=== PATIENT | male | born 1950 | race Caucasian/White ===

== ENCOUNTER 2019-02-06 10:42 | Inpatient (IN) | payer MEDICARE, OTHER ==
--- NOTE | 2019-02-06 10:59 | ED Physician Chart ---
ED Chief Complaint/HPI - Patient Information Date Seen:: 02/06/19 Time Seen:: 10:40 Chief Complaint:: Agitation History of Present Illness:: onset x 3 days of agitation and aggressive behavior; no report of trauma, H/As, SIs, neck pain, C/P, cough, Abd. Pain, A/N/V/D/C, fever, chills, or urinary s/s Historian:: Patient, EMS Review:: Nurse's Note Reviewed, Old Chart Reviewed, EMS run form Reviewed ED Review of Systems - Review of Systems General/Constitutional: No fever, No chills, No weight loss, No weakness, No diaphoresis, No edema, No loss of appetite Skin: No skin lesions, No rash, No bruising Head: No headache, No light-headedness Eyes: No loss of vision, No pain, No diplopia ENT: No earache, No nasal drainage, No sore throat, No tinnitus Neck: No neck pain, No swelling, No thyromegaly, No stiffness, No mass noted Cardio Vascular: No chest pain, No palpitations, No PND, No orthopnea, No edema Pulmonary: No SOB, No cough, No sputum, No wheezing GI: No nausea, No vomiting, No diarrhea, No pain, No melena, No hematochezia, No constipation, No hematemesis G/U: No dysuria, No frequency, No hematuria, No nacturia Musculoskeletal: No bone or joint pain, No back pain, No muscle pain Endocrine: No polyuria, No polydipsia Psychiatric: Prior psych history, Depression, Anxiety, No suicidal ideation, No homicidal ideation, No auditory hallucination, No visual hallucination Hematopoietic: No bruising, No lymphadenopathy Allergic/Immuno: No urticaria, No angioedema Neurological: No syncope, No focal symptoms, No weakness, No paresthesia, No headache, No seizure, No dizziness, Confusion, No vertigo ED Past Medical History - Past Medical History Obtainable: Yes Past Medical History: HTN, Dementia Family History: HTN Social History: Non Smoker, No Alcohol, No Drug Use, Single, Care Facility Surgical History: None Psychiatricy History: Depression, Bipolar, Dementia Medication: Reviewed Family Medical History - Family Member Father History Unknown: Yes ED Physical Exam - Physical Examination General/Constitutional: Awake, Well-developed, well-nourished, Alert, No distress, GCS 15, Non-toxic appearing, Ambulatory Head: Atraumatic Eyes: Lids, conjuctiva normal, PERRL, EOMI Skin: Nl inspection, No rash, No skin lesions, No ecchymosis, Well hydrated, No lymphadenopathy ENMT: External ears, nose nl, TM canals nl, Nasal exam nl, Lips, teeth, gums nl , Oropharynx nl, Tonsils nl Neck: Nontender, Full ROM w/o pain, No JVD, No nuchal rigidity, No bruit, No mass, No stridor Respiratory: Nl effort/Exclusion, Clear to Auscultation, No Wheeze/Rhonchi/Rales Cardio Vascular: No murmur, gallop, rubs, NL S1 S2, Carotid/Femoral/Distal pulses equal bilaterally Other Cardio Vascular comments:: Irregular Irregular Rhythm GI: No tenderness/rebounding/guarding, No organomegaly, No hernia, Normal BS's, Nondistended, No mass/bruits, No McBurney tenderness : No CVA tenderness Extremities: No tenderness or effusion, Full ROM, normal strength in all extremities, No edema, Normal digits & nails Neuro/Psych: Alert/oriented, DTR's symmetric, Normal sensory exam, Normal motor strength, Judgement/insight normal, Mood normal, Normal gait, No focal deficits Other Neuro/Psych comments:: + Psychomotor Agitation; no SIs; Mood/Affect: Labile Misc: Normal back, No paraspinal tenderness ED Labs/Radiology/EKG Results - Lab Results Comments:: Reviewed - EKG Interpretations EKG Time:: 11:01 Rate & Rhythm: 88; Atrial Fibrillation Comments:: non-specific st-t changes ED Septic Shock - . Is Septic Shock (SBP<90, OR Lactate>4 mmol\L) present?: No ED Reassessment (Disposition) - Reassessment Reassessment Condition:: Improved - Diagnosis Diagnosis:: Agitation; Medical Clearance; Dementia; Bipolar Disorder - Aftercare/Follow up Instructions Aftercare/Follow-Up Instructions:: Counseled pt regarding lab results/diagnosis & need follow up, Counseled pt & family regarding lab results/diagnosis & need follow up - Patient Disposition Discharge/Transfer:: Acute Care w/in this hosp Admitted to:: [facility] Condition at Disposition:: Stable, Improved
[2019-02-06 11:17] LABS: % BASOPHILS 1.4 % (0.0-2.0); % LYMPHOCYTES 14.6 % (20.0-50.0); % MONOCYTES 6.2 % (2.0-10.0); % NEUTROPHILS 76.8 % (40.0-80.0); BASOPHILE ABSOLUTE 0.1 Th/cumm (0-0.2); EOSINOPHILE ABSOLUTE 0.1 Th/cmm (0.1-0.4); HEMATOCRIT 43.7 % (41.0-60); HEMOGLOBIN 15.5 gm/dL (12-16); LYMPHOCYTE ABSOLUTE 1.2 Th/cmm (1.5-3.0); MEAN CELL VOLUME 92.1 fl (80-99); MEAN CORPUSCULAR HEMOGLOBIN 32.6 pg (27.0-31.0); MEAN CORPUSCULAR HGB CONC 35.4 pg (28.0-36.0); MONOCYTE ABSOLUTE 0.5 Th/cmm (0.3-1.0); NEUTROPHILE ABSOLUTE 6.6 Th/cmm (1.8-8.0); PLATELET COUNT 217 Th/cmm (150-400); RED BLOOD COUNT 4.75 Mil/cmm (3.80-5.80); RED CELL DISTRIBUTION WIDTH 13.9 % (11.5-20.0); WHITE BLOOD COUNT 8.5 Th/cmm (4.8-10.8)
[2019-02-06 11:31] LABS: ACETAMINOPHEN < 10.0 ug/mL (10.0-30.0); ALB/GLOB RATIO 1.5 (1.0-1.8); ALBUMIN 4.1 gm/dL (4.2-5.5); ALKALINE PHOSPHATASE 100 U/L (34-104); ANION GAP 11.6 (7.0-16.0); BILIRUBIN,TOTAL 0.6 mg/dL (0.3-1.0); BUN - UREA NITROGEN 20 mg/dL (7-25); CALCIUM SERUM 9.3 mg/dL (8.6-10.3); CHLORIDE 103 mEq/L (98-107); CHOLESTEROL 137 mg/dL (<200); GFR AFRICAN-AMERICAN > 60.0 ml/min (>90); GFR NON AFRICAN-AMERICAN > 60.0 ml/min; GLUCOSE 108 mg/dL (70-105); HDL -HIGH DENSITY LIPOPROTEIN 50 mg/dL (23-92); POTASSIUM SERUM 3.6 mEq/L (3.5-5.1); SGOT 16 U/L (13-39); SGPT/ALT 24 U/L (7-52); SODIUM SERUM 136 mEq/L (136-145); TOTAL PROTEIN,SERUM 6.9 gm/dL (6.0-8.3); TRIGLYCERIDES 111 mg/dL (<150)
[2019-02-06 11:39] LABS: URINE SOURCE CLEAN C
[2019-02-06 11:46] LABS: URINE BILIRUBIN NEGATIVE (NEGATIVE); URINE BLOOD NEGATIVE (NEGATIVE); URINE GLUCOSE (UA) NEGATIVE (NEGATIVE); URINE KETONE NEGATIVE (NEGATIVE); URINE LEUKOCYTE ESTERASE NEGATIVE (NEGATIVE); URINE MICROSCOPIC INDICATED? YES; URINE NITRATE NEGATIVE (NEGATIVE); URINE PH 5.5 (4.6 - 8.0); URINE PROTEIN TRACE mg/dL (NEGATIVE)
[2019-02-06 11:52] LABS: AMPHETAMINE URINE NEGATIVE (NEGATIVE); BARBITURATES URINE NEGATIVE (NEGATIVE); BENZODIAZEPINES QUAL URINE NEGATIVE (NEGATIVE); CANNABINOID THC NEGATIVE (NEGATIVE); COCAINE METABOLITE QUAL URINE NEGATIVE (NEGATIVE); METHADONE URINE NEGATIVE (NEGATIVE); METHAMPHETAMINES QUAL URINE NEGATIVE (NEGATIVE); OPIATES (MORPHINE) QUAL. URINE NEGATIVE (NEGATIVE); PHENCYCLIDINE (PCP) URINE NEGATIVE (NEGATIVE); TRICYCLICS (TCA) QUAL. URINE NEGATIVE (NEGATIVE)
[2019-02-06 11:55] LABS: URINE CLARITY CLEAR (CLEAR); URINE COLOR YELLOW; URINE EPITHELIAL CELLS NONE SEEN /lpf (FEW); URINE RBC 0-2 /hpf (0-5); URINE WBC 0-2 /hpf (0-5)
[2019-02-06 11:56] LABS: URINE BACTERIA FEW /hpf (NONE SEEN)
--- NOTE | 2019-02-06 12:50 | Psychiatric Evaluation ---
DATE OF SERVICE: 02/06/2019 IDENTIFYING INFORMATION: The patient is a 68-year-old male just here for admission. The patient was sent from [facility] [place] because of agitation. The patient was a poor historian. He was unable to tell me his age, he believes he was 63, on reality is 68. Unable to tell me the date, where he is. He believes he is here to have a checkup. The patient reports that he can tell me how he sleep and eat. He denies prior psychiatric treatment. He denies any previous suicide attempt; however, he is a poor historian. Denies substance abuse. PAST PSYCHIATRIC HISTORY: What seems to be like dementia with behavior problems. I am not sure of any other diagnosis. The patient denies prior suicide attempt, but he is not a reliable historian. Denies any substance abuse in the past. MEDICAL HISTORY: Deferred to the medical doctor. FAMILY AND SOCIAL HISTORY: The patient reports he was once. He has one girl. He believes he is 10-12 years of age, which does not make sense. He reported that he has high school education and he used to work unloading trucks. He denies substance abuse problem. Denies family psychotic disorder. He was a poor historian. MENTAL STATUS EXAMINATION: The patient is appropriately dressed, not ____ very well. He was alert. He was scratching himself. He was alert, but he would not tell me his age, he can tell me the date, where he is, why he is here. His oysterman memory is poor, cannot tell me his age, date of . Recent memory is poor, does not know why he is here, does not know where he lives with his illness. When asked about hallucination, he denies When asked about suicide and homicide, he denies. He has poor insight about his aggressive behavior at the nursing facility. His insight about his illness is poor, does not realize as a problem. Judgment is poor with him acting aggressive. IMPRESSION: Psychosis, not otherwise specified, dementia with behavior disturbances. MEDICAL DIAGNOSES: As per medical doctor. His assets accepting treatment. Negative poor coping skills and aggressive. PLAN: The patient will be observed and we will restart his medications. ____ I do not have it yet. We will initiate medication as we find out about it. ESTIMATED LENGTH OF STAY: 3-7 days. DISCHARGE CRITERIA: Decreasing agitation, no longer aggressive. JOB# [id number]
[2019-02-06 20:12] VITALS: BP 121/63
[2019-02-06] MEDS ORDERED: Magnesium Hydroxide (MOM) 30 mL UDC PO PRN (20:12)
[2019-02-06] MEDS ORDERED: Maalox 30 mL Cup PO PRN (20:12)
[2019-02-07 07:06] LABS: A1C 5.1 % (4.8-5.6)
[2019-02-07] MEDS: Multivitamin Tab PO SCH (10:31)
--- NOTE | 2019-02-07 13:22 | Progress Notes ---
DATE: 02/07/2019 Case was discussed with staff of the patient, reviewed records. The patient continues to have poor insight. Continues to be easily agitated. Continues to be a poor historian. Unable to give any information or tell me the date, why he is here. He has behavior issues. He is sleeping better, eating better. Lexapro 15 mg daily, I have increased yesterday. No side effects with the medication. No sedation, no nausea, no extrapyramidal symptoms. I will be adding Aricept to his medication and we will continue to work with the patient in group therapy, milieu therapy, adjust medication as needed. JOB# [id number]
[2019-02-08] MEDS: Multivitamin Tab PO SCH (10:00)
--- NOTE | 2019-02-08 15:22 | Progress Notes ---
DATE: 02/08/2019 Case was discussed with staff of the patient, reviewed records. The patient continues to have poor insight. Continues to be easily agitated, poor historian, unable to give much information. Sleeping better, eating better. He tolerated the increase in Lexapro with no side effects, no sedation, no nausea, no extrapyramidal symptoms. He is on Aricept 5 mg at bedtime as well. We will continue outpatient group therapy, milieu therapy, and adjust medications as needed. JOB# [id number]
--- NOTE | 2019-02-09 02:15 | History & Physical ---
ADMIT DATE: 02/06/2019 REASON FOR ADMISSION: Psychiatric disorder. HISTORY OF PRESENT ILLNESS: This is a 68-year-old male was admitted to Geropsych Unit for evaluation of the underlying mental disorders by Dr. Garcia. Dr. Garcia requested medical H and P on this patient. The patient denies any medical complaints. PAST MEDICAL HISTORY: No significant past medical history. PAST SURGICAL HISTORY: No significant past surgical history. FAMILY HISTORY: No significant family history. SOCIAL HISTORY: No reported alcohol, tobacco or drug use. MEDICATIONS: Reviewed. ALLERGIES: No known drug allergies. REVIEW OF SYSTEMS: No reported fever, no chills, no diarrhea, no vomiting, no abdominal pain, no headache or other concern reported. PHYSICAL EXAMINATION: VITAL SIGNS: Temperature 99.2, pulse 64, respiration 18, blood pressure 102/74, 95% on room air. HEART: S1, S2 normal. LUNGS: Clear to auscultation. ABDOMEN: Soft, nontender. NEUROLOGIC: The patient is awake, confused. Moves all extremities. AVAILABLE LABORATORY DATA: Available laboratory data has been reviewed. ASSESSMENT: 1. Fever. 2. Positive RPR. 3. Dementia. 4. Mental disorder. PLAN: Follow up on the RPR titer, monitor fever. Psych management per psychiatrist. The patient is medically stable. The patient is on fall and aspiration precautions. Plan of care discussed with the nursing staff. JOB# [id number]
[2019-02-09] MEDS: Multivitamin Tab PO SCH (09:28)
--- NOTE | 2019-02-09 22:53 | Progress Notes ---
DATE: 02/09/2019 Case was discussed with staff of the patient, reviewed records. The patient continues to be easily agitated, needing total self-care. Continues to have poor insight, unable to make safe plan for self-care, unable to participate in meaningful conversation. He is demented and confused. He tolerated adding of Aricept and also he is on Lexapro that was increased to 50 mg daily with no side effects, no sedation, no nausea. I will be adding Namenda to his medication to help improve his cognition. We will continue outpatient group therapy, milieu therapy, adjust medication as needed. JOB# [id number]
--- NOTE | 2019-02-10 07:33 | Progress Notes ---
DATE: 02/10/2019 SUBJECTIVE: The patient in the hospital, here due to agitation and escalation of behaviors. The patient is irritable this morning, refusing to speak with me. Dr. Garcia saw the patient yesterday, noting that the patient is easily agitated, needing a higher level of care, demented, confused, not making any sense. The patient is calm this morning, but very impulsive, unpredictable per staff, some periods of easily agitated, preoccupied. PLAN: We will continue to monitor. The patient needing prompting for ADLs, eating. Continue dosing of Aricept. JOB# [id number]
[2019-02-10] MEDS: Multivitamin Tab PO SCH (08:48)
--- NOTE | 2019-02-11 09:02 | Progress Notes ---
DATE: 02/11/2019 SUBJECTIVE: The patient in the hospital, slept for 6 hours. He is pretty agitated right now, yelling "help, help," trying to get out of the unit, banging on the doors, banging on things stating that he is going to start yelling and screaming, stating that he has paid the rent already and that other people live here. Focused on smoking. Staff may have to give him emergency medications, currently on dosing of Lexapro, Aricept, Namenda, he is extremely confused. ASSESSMENT: Ongoing symptoms, delusions, believing he was in the hospital, is paying rent here. PLAN: We will continue to monitor. JOB# [id number]
[2019-02-11] MEDS: Multivitamin Tab PO SCH (09:46)
[2019-02-11] MEDS ORDERED: Haloperidol Lactate 5 mg/mL 1mL Vial IM ONE (10:32)
[2019-02-11] MEDS ORDERED: Haloperidol Lactate 5 mg/mL 1mL Vial ONE (10:38)
[2019-02-12] MEDS: Multivitamin Tab PO SCH (08:41)
--- NOTE | 2019-02-13 07:59 | Diagnostic Imaging Report ---
Right femur 2 views Indication: pain Comparison: none Findings: Exam is limited due to body habitus. There is suggestion of the possible basocervical femoral neck fracture. No dislocation. Degenerative changes of right hip joint is noted. Postsurgical changes of the groin region are noted. Atherosclerosis is noted. Impression: Possible basicervical right femoral neck fracture extending to the intertrochanteric region. Recommend further clarification with CT exam given the limitations of this exam. In the setting of trauma, if clinical symptoms persist and there is continued concern for an occult fracture, follow up exams in 5-7 days is suggested.
[2019-02-13] MEDS: Multivitamin Tab PO SCH (08:57)
--- NOTE | 2019-02-13 18:52 | Progress Notes ---
DATE: SUBJECTIVE: Chart reviewed and the patient interviewed. Also, I discussed the patient's condition with the staff and reviewed records and labs. The patient is still in a depressed mood. The patient also is still withdrawn and guarded and interacting minimally with others. The patient also is feeling hopeless at times and wants to be left alone. Otherwise, the patient is compliant with taking his medications with no side effects of medications. ASSESSMENT: The patient is still anxious and is still depressed mood. TREATMENT PLAN: We will continue monitoring his behavior and his condition closely. Also, continue to work on his ineffective coping. Also, we will increase Lexapro to 20 mg every day and continue Namenda and Aricept. Also, continue to work on his ineffective coping and followup. The patient seems to be slightly calmer today. Also, it seems that adding Seroquel did help the patient to be calmer than the day before. [facility]# [id number]
== END 2019-02-13 11:55 | disposition short-term general hospital (02) | DRG 885 ==
LOC: ER 10:42 → GERO 11:54
PROVIDERS: ADMIT Psychiatry & Neurology Psychiatry; ATTEND Psychiatry & Neurology Psychiatry
DX: F29 Unspecified psychosis not due to a substance or known physiological condition (principal); I10 Essential (primary) hypertension; F31.9 Bipolar disorder, unspecified; R50.9 Fever, unspecified; F03.90 Unspecified dementia, unspecified severity, without behavioral disturbance, psychotic disturbance, mood disturbance, and anxiety
CPT/HCPCS: 36415-UA; 80053-TC; 80061-TC; 80307; 80320-TC; 80329-TC; 81001-TC; 83036-90; 84443-TC; 84484-TC; 85025-TC; 86592-TC; 86593-TC; 86780-90; 93005; J1200; J1630; J2060; Z7610